=== PATIENT | female | born 1935 | race Caucasian/White ===

== ENCOUNTER 2023-02-19 01:52 | Emergency (ER) | payer MEDICARE ==
[~2023-02-19] VITALS: Ht 172.7 cm; Wt 83.0 kg
[2023-02-19 02:10] VITALS: BP_SYST 162
[2023-02-19] MEDS ORDERED: NS 500 ML IV ONE (03:00)
[2023-02-19] MEDS ORDERED: AMOXICILLIN/POTASSIUM CLAV 875 MG TABLET PO ONE (03:00)
[2023-02-19] MEDS ORDERED: POLYTRIM EACH EYE (03:17)
[2023-02-19] MEDS ORDERED: AUG875 PO (03:17)
[2023-02-19] MEDS ORDERED: ERYEYE EACH EYE (03:17)
[2023-02-19 03:50] LABS: ANION GAP 9 (5-15); CALCIUM 8.8 mg/dL (8.4-11.0); CHLORIDE 97 mmol/L (98-107); GLUCOSE 109 mg/dL (70-99); UREA NITROGEN, BLOOD 11 mg/dL (8-21)
[2023-02-19 03:57] LABS: ALANINE AMINOTRANSFERASE 14 U/L (12-78); ALBUMIN 2.7 g/dL (3.4-4.8); ASPARTATE AMINOTRANSFERASE 19 U/L (10-37); TOTAL BILIRUBIN 0.5 mg/dL (0.0-1.0)
[2023-02-19 04:05] LABS: BASOPHILS % (AUTO) 0.2 % (0.0-2.0); EOSINOPHILS % (AUTO) 0.2 % (0.0-4.0); HEMATOCRIT 35.5 % (36-48); HEMOGLOBIN 11.9 g/dL (12.0-16.0); LYMPHOCYTES # (AUTO) 1.2 K/uL (1.0-5.5); LYMPHOCYTES % (AUTO) 6.9 % (20.5-51.5); MEAN CORPUSCULAR HEMOGLOBIN 29 pg (27-31); MEAN CORPUSCULAR HGB CONC 34 % (32-36); MEAN CORPUSCULAR VOLUME 88 fL (79.0-98.0); MONOCYTES # (AUTO) 1.8 K/uL (0.0-1.0); MONOCYTES % (AUTO) 10.3 % (1.7-9.3); NEUTROPHILS # (AUTO) 14.1 K/uL (1.8-7.7); NEUTROPHILS % (AUTO) 82.4 % (40.0-70.0); PLATELET COUNT (AUTO) 337 K/uL (130-430); RED BLOOD CELL COUNT(AUTO) 4.05 MIL/uL (4.2-6.2); RED CELL DISTRIBUTION WIDTH 13.5 % (9.0-15.0); WHITE BLOOD COUNT (AUTO) 17.1 K/uL (4.8-10.8)
[2023-02-19] MEDS ORDERED: PIPERACILLIN/TAZO 3.375 GM in NS 50 ML IV ONE (04:15)
[2023-02-19] MEDS ORDERED: VANCOMYCIN HCL 1,000 MG in NS 250 ML IV ONE (04:15)
[2023-02-19] MEDS ORDERED: VANCOMYCIN HCL 1000 MG/VIAL IV ONE (04:27)
[2023-02-19] MEDS ORDERED: PIPERACILLIN/TAZOBACTAM 3.375 GM/VIAL (ZOSYN) IV ONE (04:27)
[2023-02-19] MEDS ORDERED: LOSARTAN POTASSIUM 50 MG TABLET (COZAAR) PO ONE (04:45)
[2023-02-19] MEDS ORDERED: ATENOLOL 50 MG TABLET (TENORMIN) PO ONE (04:45)
[2023-02-19] MEDS: ERYTHROMYCIN 0.5% EYE OINT 3.5 GM OP ONE ×2 (05:19→07:11)
[2023-02-19] MEDS ORDERED: IBUPROFEN 600 MG TABLET PO ONE (06:00)
[2023-02-19] MEDS ORDERED: LABETALOL HCL 20 MG/4 ML CARTRIDGE IVP ONE (06:15)
--- NOTE | 2023-02-19 06:44 | NUR ---
0700 REPORT ENDORSED TO DAY SHIFT ER NURSE. Addendum: 02/19/23 at 0645 by [email or web address] RAJINDER Torres/James 150/67.
[2023-02-19] MEDS ORDERED: ERYTHROMYCIN BASE 0.5% EYE OINT...G. ONE (07:07)
--- NOTE | 2023-02-19 07:24 | NUR ---
Report received from security shift supervisor RN for continuity of care. Patient in stable.
[2023-02-19 08:51] VITALS: BP_SYST 180
--- NOTE | 2023-02-19 08:56 | NUR ---
Patient to be transferred to [facility] . Is being transferred due to higher level of care. Receiving facility has accepting physician and available space. ER physician has signed transfer form. Patient or responsible green party has agreed to transfer and signed form. Patient belongings inventoried and will be sent with patient. Copy of nursing notes, lab reports, EKG, Physicians Orders and X-rays to be sent with patient. Report called to [facility] at receiving facility. Receiving physician is . A ambulance service has been called for transfer. ETA is [id number].
== END 2023-02-19 08:56 | disposition short-term general hospital (02) ==
LOC: SED 01:52
DX: H10.89 Other conjunctivitis (principal); J01.90 Acute sinusitis, unspecified; J18.1 Lobar pneumonia, unspecified organism; R09.82 Postnasal drip; E88.09 Other disorders of plasma-protein metabolism, not elsewhere classified; E63.9 Nutritional deficiency, unspecified; I11.0 Hypertensive heart disease with heart failure; I50.9 Heart failure, unspecified; Z88.1 Allergy status to other antibiotic agents; Z88.8 Allergy status to other drugs, medicaments and biological substances; Z79.899 Other long term (current) drug therapy; Z20.822 Contact with and (suspected) exposure to COVID-19
CPT/HCPCS: 99285; 96365; 70481; 71045; 96367; 96361; 96375; 87426; 80053; 85025; 87040; 84484; 36415; 76376; 83605; 87804 ×2; J2543; J3370; Q9967; J7030; 96366

== ENCOUNTER 2023-05-24 07:11 | Emergency (ER) | payer MEDICARE ==
[~2023-05-24] VITALS: Ht 165.1 cm; Wt 83.0 kg
[~2023-05-24 07:11] MED LIST: AUG875 PO; ERYEYE EACH EYE; POLYTRIM EACH EYE
[2023-05-24 07:36] LABS: BASOPHILS # (AUTO) 0.1 K/uL (0.0-0.2); BASOPHILS % (AUTO) 0.5 % (0.0-2.0); EOSINOPHILS # (AUTO) 0.2 K/uL (0.0-0.4); EOSINOPHILS % (AUTO) 1.5 % (0.0-4.0); HEMOGLOBIN 12.8 g/dL (12.0-16.0); LYMPHOCYTES # (AUTO) 1.3 K/uL (1.0-5.5); LYMPHOCYTES % (AUTO) 11.8 % (20.5-51.5); MEAN CORPUSCULAR HEMOGLOBIN 30 pg (27-31); MEAN CORPUSCULAR HGB CONC 33 % (32-36); MEAN CORPUSCULAR VOLUME 90 fL (79.0-98.0); MONOCYTES # (AUTO) 0.8 K/uL (0.0-1.0); MONOCYTES % (AUTO) 7.7 % (1.7-9.3); NEUTROPHILS # (AUTO) 8.6 K/uL (1.8-7.7); NEUTROPHILS % (AUTO) 78.5 % (40.0-70.0); PLATELET COUNT (AUTO) 261 K/uL (130-430); RED BLOOD CELL COUNT(AUTO) 4.34 MIL/uL (4.2-6.2)
[2023-05-24 07:40] VITALS: BP_SYST 142; PULSE 88; RESP 17; TEMP 97.3; O2SAT 99
[2023-05-24 07:50] LABS: ANION GAP 8 (5-15); CHLORIDE 104 mmol/L (98-107); CREATININE 0.59 mg/dL (0.55-1.30); GLUCOSE 98 mg/dL (74-106); UREA NITROGEN, BLOOD 15 mg/dL (8-21)
[2023-05-24 07:57] LABS: ALANINE AMINOTRANSFERASE 8 U/L (12-78); ALBUMIN 3.6 g/dL (3.4-4.8); AMYLASE 42 U/L (0-100); ASPARTATE AMINOTRANSFERASE 18 U/L (10-37); LIPASE 103 U/L (73-393); TOTAL BILIRUBIN 0.4 mg/dL (0.0-1.0)
[2023-05-24 09:47] LABS: BILIRUBIN,URINE NEGATIVE (NEGATIVE); BLOOD, URINE 3+ (NEGATIVE); CLARITY/URINE SL CLOUDY (CLEAR); COLOR,URINE BROWN (YELLOW); GLUCOSE,URINE NEGATIVE (NEGATIVE); KETONES,URINE NEGATIVE (NEGATIVE); LEUKOCYTE ESTERASE ,URINE 2+ (NEGATIVE); NITRITE, URINE NEGATIVE (NEGATIVE); PH,URINE 5.5 (5.0-8.0); PROTEIN URINE 2+ (NEGATIVE); UROBILINOGEN,URINE 0.2 (0.2-1.0)
[2023-05-24 10:10] LABS: BACTERIA,URINE RARE /HPF (None Seen); RBC,URINE >100 /HPF (0-3); WBC,URINE 20-50 /HPF (0-3)
[2023-05-24] MEDS ORDERED: NITR-85 PO (10:14)
[2023-05-24] MEDS ORDERED: cefTRIAXone 1 GM in LIDOCAINE 1%, 20 ML MDV 2.1 ML IM ONE (10:15)
[2023-05-24 11:40] VITALS: BP_SYST 172; PULSE 84; RESP 18; TEMP 97.1; O2SAT 98
== END 2023-05-24 12:38 ==
LOC: SED 07:11
DX: N39.0 Urinary tract infection, site not specified (principal); R10.32 Left lower quadrant pain; R30.0 Dysuria; J45.909 Unspecified asthma, uncomplicated; I11.0 Hypertensive heart disease with heart failure; I50.9 Heart failure, unspecified; Z88.1 Allergy status to other antibiotic agents; Z88.6 Allergy status to analgesic agent; Z88.8 Allergy status to other drugs, medicaments and biological substances; Z79.899 Other long term (current) drug therapy
CPT/HCPCS: 99285; 74176; 80053; 81000; 82150; 83690; 85025; 87086; 84484; 36415; 76376; 96372; 83605; J0696; J2001